=== PATIENT | female | born 1955 | race Caucasian/White ===

== ENCOUNTER 2017-06-26 12:44 | Emergency (ER) | payer OTHER ==
[~2017-06-26] VITALS: Ht 152.4 cm; Wt 54.9 kg
[2017-06-26] MEDS ORDERED: IBUPROFEN600 MG ORAL (12:53)
[2017-06-26] MEDS ORDERED: Tetanus/Diptheria/Pertussis Vaccine 0.5ml Syr IM ONE (13:00)
--- NOTE | 2017-06-26 13:02 | Emergency Room Report ---
History of Present Illness General Chief Complaint: Laceration Source: Patient Present Illness HPI 62-year-old female presents to the emergency department complaining of laceration to the distal left index finger times one hour. 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 Patient denies any blood thinning medications. She does not know when her last tetanus vaccination was. Patient states pain is 0/10 in severity at the moment and the bleeding has been controlled.Denies numbness tingling or loss of sensation or gross motor movements of the extremities. Allergies: Coded Allergies: No Known Allergies (Unverified , 06/26/17) Patient History Past Medical History: see triage record Past Surgical History: none Pertinent Family History: none Last Menstrual Period: Post Now: No Reviewed Nursing Documentation: PMH: Agreed, PSxH: Agreed Nursing Documentation-PMH Past Medical History: No Stated History Review of Systems All Other Systems: negative except mentioned in HPI Physical Exam Vital Signs Date Time Temp Pulse Resp B/P (MAP) Pulse Ox O2 Delivery O2 Flow Rate FiO2 06/26/17 12:47 98.1 72 17 159/93 95 Room Air Sp02 EP Interpretation: reviewed, normal General Appearance: no apparent distress, alert, GCS 15, non-toxic Head: normocephalic, atraumatic Eyes: bilateral eye normal inspection, bilateral eye PERRL ENT: hearing grossly normal, normal voice Neck: full range of motion, supple/symm/no masses Respiratory: lungs clear, normal breath sounds, speaking full sentences Cardiovascular #1: regular rate, rhythm, normal capillary refill Musculoskeletal: back normal, gait/station normal, normal range of motion, non- tender Neurologic: alert, oriented x3, responsive, motor strength/tone normal, sensory intact, speech normal Skin: normal color, no rash, warm/dry, well hydrated, other - distal index finger avulsion approx 1 cm in length, no obvious fb, not bleeding at this time. Lymphatic: no adenopathy Procedures Laceration/Wound Repair Laceration/Wound Repair : Consent: Verbal Wound Location: upper extremity - left ring finger Wound's Depth, Shape: superficial Wound Length (cm): 1 Wound Explored: clean Irrigated w/ Saline (ccs): 500 Wound Repaired With: Dermabond Layer Closure?: No Sterile Dressing Applied?: No Splint Applied?: No Sling Applied?: No Patient Tolerated: Well Complications: None Medical Decision Making PA Attestation Dr. Soto is my supervising Physician whom patient management has been discussed with. Diagnostic Impression: Primary Impression: Laceration ER Course 62-year-old female presents to the emergency department complaining of laceration to the distal left ring finger times one hour. 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 Patient denies any blood thinning medications. She does not know when her last tetanus vaccination was. Patient states pain is 0/10 in severity at the moment and the bleeding has been controlled.Denies numbness tingling or loss of sensation or gross motor movements of the extremities. Pt is right hand dominant. Ddx considered but are not limited to laceration, tendon injury, cellulitis, amputation Vital signs: are WNL, pt. is afebrile H&PE are most consistent with: Avulsion laceration to distal left ring finger approx 1 cm in length ORDERS: none required at this time, the diagnosis is clinical ED INTERVENTIONS: -Tetanus vaccine was administered as pt. vaccination status was unknown. - The wound was copiously irrigated with normal saline, and explored for foreign body for which no FB was found. - The wound was approximated closed using derma-martin. Discussed with patient: That we make every effort to approximate the laceration as best as we can so that scarring will be as cosmetically pleasing as possible with our limited cosmetic skill set in the Emergency dept. Regardless of our best efforts there will be scarring after laceration repair. The extent of scarring is unknown at this time. DISCHARGE: At this time pt. is stable for d/c to home. Will provide printed patient care instructions, and any necessary prescriptions. Care plan and follow up instructions have been discussed with the patient prior to discharge. Last Vital Signs Date Time Temp Pulse Resp B/P (MAP) Pulse Ox O2 Delivery O2 Flow Rate FiO2 06/26/17 12:47 98.1 72 17 159/93 95 Room Air Disposition: HOME, SELF-CARE Condition: Stable Departure Forms: Return to Work Return to Work Date: Jun 27, 2017 Work Restrictions: No Heavy Lifting, No Prolonged Standing Patient Instructions: Nonsutured Laceration Care Additional Instructions: Take medications as directed. Follow up with a Primary Care Provider in 3-5 days, even if your symptoms have resolved. --Please review list of primary care clinics, if you do not already have a primary care provider Return sooner to ED if new symptoms occur, or current symptoms become worse. - Please note that this Emergency Department Report was dictated using [employer] trainer technology software, occasionally this can lead to erroneous entry secondary to interpretation by the dictation equipment. Brenda Benson Jun 26, 2017 13:02
[2017-06-26 13:21] VITALS: BP 159/93
[2017-06-26 13:31] VITALS: BP 148/88
== END 2017-06-26 13:33 | disposition home or self-care (01) ==
LOC: EMR 12:58
DX: S61.211A Laceration without foreign body of left index finger without damage to nail, initial encounter (principal); Z23 Encounter for immunization; W26.0XXA Contact with knife, initial encounter; Y92.511 Restaurant or cafe as the place of occurrence of the external cause; Y99.0 Civilian activity done for income or pay
CPT/HCPCS: 90471; 90715; 99283; 99284